=== PATIENT | male | born 1980 ===

== ENCOUNTER 2019-05-31 14:31 | Inpatient (IN) | payer OTHER ==
[~2019-05-31] VITALS: Ht 180.3 cm; Wt 78.6 kg
[2019-06-02 15:11] VITALS: BP 121/78
== END 2019-06-02 17:46 | disposition home or self-care (01) | DRG 66 ==
LOC: 4WST 15:39 → DCLOUNGE 06-02 17:00
PROVIDERS: ADMIT Internal Medicine; ATTEND Internal Medicine
DX: I63.9 Cerebral infarction, unspecified (principal); E10.9 Type 1 diabetes mellitus without complications; E78.5 Hyperlipidemia, unspecified; G43.909 Migraine, unspecified, not intractable, without status migrainosus; I10 Essential (primary) hypertension; R29.700 NIHSS score 0
CPT/HCPCS: 0399T; 70496; 70498; 80048; 80061; 80307; 82962; 83036; 84484; 85303; 85306; 85598; 85610; 85613; 85670; 85730; 85732; 86146; 86147; 93306; 93970; G0378; J3480; J0780; J1200; J1815; J7030